=== PATIENT | male | born 1985 | race Two or more races ===

== ENCOUNTER 2017-01-04 19:48 | Emergency (ER) | payer SELFPAY ==
[~2017-01-04] VITALS: Ht 175.3 cm; Wt 90.7 kg
[2017-01-04 19:55] VITALS: BP 163/94
[2017-01-04] MEDS ORDERED: IBUPROFEN 600 MG TABLET PO ONE ×2 (20:30→20:37)
== END 2017-01-04 20:49 | disposition home or self-care (01) ==
LOC: ER 19:54
DX: J06.9 Acute upper respiratory infection, unspecified (principal)
CPT/HCPCS: A4606; Z7610

== ENCOUNTER 2019-01-10 01:21 | Emergency (ER) | payer OTHER ==
[~2019-01-10] VITALS: Ht 175.3 cm; Wt 97.1 kg
[2019-01-10 01:38] VITALS: BP 156/100
[2019-01-10] MEDS ORDERED: ALBUTEROL FS 2.5 MG/3 ML VIAL.NEB ONE (02:22)
[2019-01-10] MEDS ORDERED: IPRATROPIUM NEB FS 0.5 MG/2.5 ML AMPUL.NEB ONE (02:22)
[2019-01-10] MEDS ORDERED: ALBUTEROL FS 2.5 MG/3 ML VIAL.NEB NEB ONE (02:30)
[2019-01-10] MEDS ORDERED: IPRATROPIUM NEB FS 0.5 MG/2.5 ML AMPUL.NEB NEB ONE (02:30)
== END 2019-01-10 03:12 | disposition home or self-care (01) ==
LOC: ER 01:24
DX: J45.909 Unspecified asthma, uncomplicated (principal)